=== PATIENT | male | born 1985 | race Caucasian/White ===

== ENCOUNTER → 2017-02-06 | Outpatient (CLI) | payer BC ==
[~2017-02-06] MED LIST: IBUP-103 PO; OXYC-164 PO; PRED20TA2 PO; PRLSR20 PO
--- NOTE | 2017-02-06 15:18 | DIAGNOSTIC IMAGING REPORT ---
THORACIC SPINE 3 VIEWS HISTORY: Pain M54.6 BACK PAIN COMPARISON: None. FINDINGS: There is no fracture. No subluxation. Disc spaces are preserved. IMPRESSION: No fracture or subluxation within the thoracic spine. Minimal scoliosis. Electronically signed by: Dalton Duran M.D. 02/06/2017 3:17 PM Dictated Date/Time: 02/06/2017 3:16 PM
--- NOTE | 2017-02-06 15:46 | DIAGNOSTIC IMAGING REPORT ---
CERVICAL SPINE 6 VIEWS HISTORY: Pain M54.6 BACK PAIN COMPARISON: None. FINDINGS: The cervical spine is visualized from C1 through the superior endplate of T1. There is no fracture. No subluxation. Disc spaces are preserved. Prevertebral soft tissues and the atlantodens interval are intact. IMPRESSION: No fracture or subluxation within the cervical spine. Electronically signed by: Dalton Duran M.D. 02/06/2017 3:44 PM Dictated Date/Time: 02/06/2017 3:44 PM
== END | disposition home or self-care (01) ==
LOC: C.RAD 14:33
DX: M54.6 Pain in thoracic spine (principal)